=== PATIENT | male | born 1935 | race Caucasian/White ===

== ENCOUNTER 2021-08-05 10:45 | Observation (INO) | payer MEDICARE, OTHER ==
[2021-08-05 12:18] VITALS: BMI 29.7
[2021-08-06] MEDS ORDERED: Lidocaine 1% MPF 2 ML VIAL ONE (11:19)
[2021-08-06] MEDS ORDERED: EPINEPHrine 1 MG/ML AMP ONE (12:19)
[2021-08-06] MEDS ORDERED: Neomycin-Polymyxin 1 ML AMP ONE (12:19)
[2021-08-06] MEDS ORDERED: Bupivacaine PF 0.5% 30 ML VIAL ONE (12:20)
[2021-08-06] MEDS ORDERED: Midazolam HCl 2 mg/2 ml Vial ONE (12:20)
[2021-08-06] MEDS ORDERED: Ropivacaine 0.5% HCl/PF (150 MG/30 ML VIAL) ONE (12:20)
[2021-08-06] MEDS ORDERED: Fentanyl 100 MCG/2 ML VIAL ONE ×3 (12:21→14:15)
[2021-08-06] MEDS ORDERED: PROPOFOL 20 ML ONE (12:35)
[2021-08-06] MEDS ORDERED: Rocuronium Bromide 10 MG/ML (10ML VIAL) ONE (12:35)
[2021-08-06] MEDS ORDERED: Lidocaine 1% PF 5 ML VIAL ONE (12:35)
[2021-08-06] MEDS ORDERED: Dexamethasone 4 mg/ml Vial ONE (12:35)
[2021-08-06] MEDS ORDERED: Ondansetron PF 4 MG/2 ML Vial ONE (12:35)
[2021-08-06] MEDS ORDERED: ceFAZolin 2 GM/Dextrose 50 ML IVPB ONE (12:41)
[2021-08-06] MEDS ORDERED: Morphine 4 MG/ML VIAL SLOW IVP PRN (14:12)
[2021-08-06] MEDS ORDERED: Morphine 2 MG/ML VIAL SLOW IVP PRN (14:12)
[2021-08-06] MEDS ORDERED: Ondansetron PF 4 MG/2 ML Vial SLOW IVP PRN (14:12)
[2021-08-06] MEDS ORDERED: HYDROcodone/Acetaminophen 10/325 mg Tablet PO PRN (14:12)
[2021-08-06] MEDS ORDERED: Communication Order-Pharmacy FS PRN (14:15)
[2021-08-06] MEDS: Ketorolac Tromethamine 30 MG/ML VIAL IVP SCH ×2 (16:30→23:56)
[2021-08-06] MEDS ORDERED: Mag-Al Plus 1200 MG/1200 MG/120 MG/30 ML UDCUP PO PRN (20:31)
[2021-08-06] MEDS: Aspirin 81 mg Enteric Coated Tablet PO SCH (20:51)
[2021-08-06] MEDS: HYDROcodone/Acetaminophen 10/325 mg Tablet PO PRN (21:00)
[2021-08-06] MEDS: CEFAZOLIN 2 GM in Sodium Chloride 0.9% 100 ML IVPB SCH (22:08)
[2021-08-07] MEDS: CEFAZOLIN 2 GM in Sodium Chloride 0.9% 100 ML IVPB SCH (05:27)
[2021-08-07] MEDS: Ketorolac Tromethamine 30 MG/ML VIAL IVP SCH ×2 (05:27→12:56)
[2021-08-07] MEDS: HYDROcodone/Acetaminophen 10/325 mg Tablet PO PRN (06:58)
[2021-08-07] MEDS: Aspirin 81 mg Enteric Coated Tablet PO SCH (09:48)
[2021-08-07 13:06] VITALS: TEMP 98.1
[2021-08-07 16:19] VITALS: BP 106/53
== END 2021-08-07 16:30 | disposition home or self-care (01) ==
LOC: CSHERHOLD 08-06 10:55 → INTOOBSV 08-06 10:55 → CSHTELE 08-06 13:56
PROVIDERS: ADMIT Orthopaedic Surgery; ATTEND Orthopaedic Surgery
PROC: 0QS706Z Reposition Left Upper Femur with Intramedullary Internal Fixation Device, Open Approach (ICD-10-PCS; principal; 2021-08-06)
PROC: 3E0R3BZ Introduction of Anesthetic Agent into Spinal Canal, Percutaneous Approach (ICD-10-PCS; 2021-08-06)
DX: S72.145A Nondisplaced intertrochanteric fracture of left femur, initial encounter for closed fracture (principal); W19.XXXA Unspecified fall, initial encounter
CPT/HCPCS: 27245; 64999; 73502; 94640; 94760 ×2; 96374; 96375; 96376 ×2; 97110; 97116; 97139 ×4; 97535; C1713 ×3; G0378 ×2; J0171; J0690; J1100; J1885; J2250; J2405; J2704; J2795; J3010; J3490; J7620; S0020